=== PATIENT | female | born 1995 | race Caucasian/White ===

== ENCOUNTER 2024-04-12 01:08 | Inpatient (IN) | payer MEDICAID ==
[2024-04-12] MEDS ORDERED: Terbutaline 1 MG/ML SDV SUBCUT PRN (01:22)
[2024-04-12] MEDS ORDERED: Misoprostol 25 MCG (1/4 of 100 MCG) Tab VAG PRN (01:22)
[2024-04-12] MEDS ORDERED: Butorphanol 2 MG/ML SDV IVPUSH PRN (01:22)
[2024-04-12] MEDS ORDERED: Water For Irrigation,Sterile 1,000 ML Container IRR PRN (01:22)
[2024-04-12] MEDS ORDERED: Lidocaine 1% 50 ML MDV INJECT PRN (01:22)
[2024-04-12] MEDS ORDERED: Sodium Chloride 0.9% 10 ML Syringe FLUSH PRN (01:22)
[2024-04-12] MEDS ORDERED: Methylergonovine 0.2 MG/1 ML Amp IM PRN (01:22)
[2024-04-12] MEDS ORDERED: Tranexamic Acid IN NACL,ISO-OS 1,000 MG in Premix Bag 1 BAG IV PRN (01:22)
[2024-04-12] MEDS ORDERED: Misoprostol 200 MCG Tab PO PRN (01:22)
[2024-04-12] MEDS ORDERED: Sodium Chloride 0.9% 2.5 ML Syringe FLUSH PRN (01:22)
[2024-04-12] MEDS ORDERED: Carboprost Tromethamine 250 MCG/1 mL Vial IM PRN (01:22)
[2024-04-12] MEDS ORDERED: Sodium Chloride 0.9% 20 ML SDV IV PRN (01:22)
[2024-04-12] MEDS ORDERED: Oxytocin/0.9 % Sodium Chloride 30 UNIT/500 ML BAG IV SCH (01:30)
[2024-04-12 02:16] LABS: HEMATOCRIT 33.6 % (37.0-47.0); HEMOGLOBIN 11.3 g/dL (12.0-16.0); MEAN CORPUSCULAR HEMOGLOBIN 27.2 pg (28.0-32.0); MEAN CORPUSCULAR HGB CONC 33.6 g/dL (32.0-36.0); MEAN CORPUSCULAR VOLUME 80.8 fL (83.0-99.0); MEAN PLATELET VOLUME 11.2 fL (9.4-12.3); PLATELET COUNT,PLT 236 K/uL (150-400); RED BLOOD CELL COUNT 4.16 M/uL (4.10-5.30); WHITE BLOOD CELL COUNT,WBC 9.92 K/uL (3.9-11.3)
[2024-04-12] MEDS: Misoprostol 25 MCG (1/4 of 100 MCG) Tab VAG PRN (03:02)
[2024-04-12] MEDS ORDERED: Phenylephrine HCl In 0.9% NaCl 1 MG/10 ML Syringe IVPUSH PRN (06:52)
[2024-04-12] MEDS ORDERED: ePHEDrine 50 MG/ML SDV IVPUSH PRN ×2 (06:52)
[2024-04-12] MEDS ORDERED: Ropivacaine HCl/PF 400 MG in Premix Bag 1 BAG EPIDUR SCH (07:00)
[2024-04-12] MEDS ORDERED: dexmedeTOMIDine HCl 200 MCG/2 ML SDV EPIDUR SCH (07:00)
[2024-04-12] MEDS: Lactated Ringers 1,000 ML IV SCH (10:00)
[2024-04-12] MEDS: Oxytocin/0.9 % Sodium Chloride 30 UNIT/500 ML BAG IV SCH (10:25)
[2024-04-12] MEDS: Misoprostol 25 MCG (1/4 of 100 MCG) Tab VAG SCH (19:08)
[2024-04-13] MEDS ORDERED: Phenylephrine HCl In 0.9% NaCl 1 MG/10 ML Syringe IVPUSH PRN (08:18)
[2024-04-13] MEDS ORDERED: ePHEDrine 50 MG/ML SDV IVPUSH PRN ×2 (08:18)
[2024-04-13] MEDS ORDERED: dexmedeTOMIDine HCl 200 MCG/2 ML SDV EPIDUR SCH (08:30)
[2024-04-13] MEDS: Ondansetron 4 MG/2 ML SDV IVPUSH PRN (10:04)
[2024-04-13] MEDS: Ropivacaine HCl/PF 400 MG in Premix Bag 1 BAG EPIDUR SCH (10:20)
[2024-04-13] MEDS ORDERED: Bupivacaine 0.25% 10 ML SDV ONE (10:40)
[2024-04-13] MEDS ORDERED: Lanolin 100% Cream 7 GM Tube TOP PRN (18:59)
[2024-04-13] MEDS ORDERED: Tranexamic Acid IN NACL,ISO-OS 1,000 MG in Premix Bag 1 BAG IV PRN (18:59)
[2024-04-13] MEDS ORDERED: Methylergonovine 0.2 MG/1 ML Amp IM PRN (18:59)
[2024-04-13 20:07] LABS: PH,UMBILICAL ARTERIAL 7.092 (7.18-7.38); PH,UMBILICAL VENOUS 7.277 (7.25-7.45)
[2024-04-13] MEDS: Benzocaine/Menthol 20%-0.5% Spray 78 GM Cannister TOP PRN (22:14)
[2024-04-13] MEDS: Witch Hazel Medicated Pads 40/Jar TOP PRN (22:14)
[2024-04-14] MEDS: Ibuprofen 800 MG Tab PO PRN (00:10)
[2024-04-14] MEDS: Acetaminophen 500 MG Tab PO PRN (00:11)
[2024-04-14 06:46] LABS: HEMATOCRIT 33.1 % (37.0-47.0); HEMOGLOBIN 10.7 g/dL (12.0-16.0)
[2024-04-14] MEDS: Docusate Sodium 100 MG Cap PO PRN (13:06)
== END 2024-04-15 14:45 | disposition home or self-care (01) | DRG 806 ==
LOC: MW.OB 01:08 → OBSVTOIN 04-13 18:59 → MW.OB 04-13 23:04
PROVIDERS: ADMIT Obstetrics & Gynecology; ATTEND Obstetrics & Gynecology
PROC: 10D07Z6 Extraction of Products of Conception, Vacuum, Via Natural or Artificial Opening (ICD-10-PCS; principal; 2024-04-13)
PROC: 3E0P7VZ Introduction of Hormone into Female Reproductive, Via Natural or Artificial Opening (ICD-10-PCS; 2024-04-13)
PROC: 3E033VJ Introduction of Other Hormone into Peripheral Vein, Percutaneous Approach (ICD-10-PCS; 2024-04-13)
PROC: 3E0R3BZ Introduction of Anesthetic Agent into Spinal Canal, Percutaneous Approach (ICD-10-PCS; 2024-04-13)
PROC: 00HU33Z Insertion of Infusion Device into Spinal Canal, Percutaneous Approach (ICD-10-PCS; 2024-04-13)
PROC: 0UQG7ZZ Repair Vagina, Via Natural or Artificial Opening (ICD-10-PCS; 2024-04-13)
PROC: 10907ZC Drainage of Amniotic Fluid, Therapeutic from Products of Conception, Via Natural or Artificial Opening (ICD-10-PCS; 2024-04-13)
PROC: 10H07YZ Insertion of Other Device into Products of Conception, Via Natural or Artificial Opening (ICD-10-PCS; 2024-04-13)
DX: O48.0 Post-term pregnancy (principal); O71.4 Obstetric high vaginal laceration alone; Z37.0 Single live birth; O35.10X0 Maternal care for (suspected) chromosomal abnormality in fetus, unspecified, not applicable or unspecified; O66.5 Attempted application of vacuum extractor and forceps; O76 Abnormality in fetal heart rate and rhythm complicating labor and delivery; Z3A.40 40 weeks gestation of pregnancy
CPT/HCPCS: 36415; 51702; 59025; 59409; 82803; 85014; 85018; 85027; 86592; 86850; 86900; 86901; A9270-GY; J2405; J2590; J2795; J3490; J7120

== ENCOUNTER 2024-11-18 11:47 | Emergency (ER) | payer BC, MEDICAID ==
[2024-11-18 12:20] LABS: BASOPHILS ABSOLUTE AUTO 0.03 K/uL (0.00-0.20); BASOPHILS PERCENT AUTO 0.4 % (0.0-1.0); EOSINOPHILS ABSOLUTE AUTO 0.07 K/uL (0.00-0.45); HEMATOCRIT 35.7 % (37.0-47.0); HEMOGLOBIN 12.2 g/dL (12.0-16.0); IMMATURE GRAN ABSOLUTE AUTO 0.02 K/uL (0.00-0.05); IMMATURE GRAN PERCENT AUTO 0.3 % (0.0-0.4); LYMPHOCYTES ABSOLUTE AUTO 2.36 K/uL (1.00-4.80); LYMPHOCYTES PERCENT AUTO 33.2 % (24.0-44.0); MEAN CORPUSCULAR HEMOGLOBIN 28.2 pg (28.0-32.0); MEAN CORPUSCULAR HGB CONC 34.2 g/dL (32.0-36.0); MEAN CORPUSCULAR VOLUME 82.6 fL (83.0-99.0); MEAN PLATELET VOLUME 9.8 fL (9.4-12.3); MONOCYTES ABSOLUTE AUTO 0.34 K/uL (0.00-0.80); MONOCYTES PERCENT AUTO 4.8 % (0.0-8.0); NEUTROPHILS ABSOLUTE AUTO 4.29 K/uL (1.80-7.70); NEUTROPHILS PERCENT AUTO 60.3 % (41.0-71.0); PLATELET COUNT,PLT 256 K/uL (150-400); RED BLOOD CELL COUNT 4.32 M/uL (4.10-5.30); WHITE BLOOD CELL COUNT,WBC 7.11 K/uL (3.9-11.3)
[2024-11-18 12:35] LABS: CALCIUM 8.7 mg/dL (8.5-10.1); CARBON DIOXIDE,CO2 20.6 mmol/L (21.0-32.0); CREATININE 0.7 mg/dL (0.6-1.0); EST CRCL DRUG DOSING (CG) 106.7 mL/min
== END 2024-11-18 15:10 | disposition home or self-care (01) ==
LOC: MW.ED 11:47
DX: O44.11 Complete placenta previa with hemorrhage, first trimester (principal); Z3A.14 14 weeks gestation of pregnancy
CPT/HCPCS: 36415; 76815; 76815-26; 80048; 85025; 99284

== ENCOUNTER 2025-05-16 09:00 | Inpatient (IN) | payer BC, MEDICAID ==
[2025-05-16] MEDS ORDERED: Sodium Chloride 0.9% 2.5 ML Syringe FLUSH PRN (09:53)
[2025-05-16] MEDS ORDERED: Water For Irrigation,Sterile 1,000 ML Container IRR PRN (09:53)
[2025-05-16] MEDS ORDERED: Butorphanol 1 MG/ML SDV IVPUSH PRN (09:53)
[2025-05-16] MEDS ORDERED: Sodium Chloride 0.9% 10 ML Syringe FLUSH PRN (09:53)
[2025-05-16] MEDS ORDERED: Ondansetron 4 MG/2 ML SDV IVPUSH PRN (09:53)
[2025-05-16] MEDS ORDERED: Carboprost Tromethamine 250 MCG/1 mL Vial IM PRN (09:53)
[2025-05-16] MEDS ORDERED: Terbutaline 1 MG/ML SDV SUBCUT PRN (09:53)
[2025-05-16] MEDS ORDERED: Oxytocin/0.9 % Sodium Chloride 30 UNIT/500 ML BAG IV SCH (10:00)
[2025-05-16] MEDS: Lactated Ringers 1,000 ML IV SCH (10:31)
[2025-05-16 11:25] LABS: MEAN PLATELET VOLUME 12.0 fL (9.4-12.3); NRBC ABSOLUTE 0.00 K/uL (0.00-0.02); NRBC PERCENT 0.0 /100WBC (0.0-0.2); PLATELET COUNT,PLT 241 K/uL (150-400); RED BLOOD CELL COUNT 4.22 M/uL (4.10-5.30); WHITE BLOOD CELL COUNT,WBC 8.13 K/uL (3.9-11.3)
[2025-05-16] MEDS: Oxytocin/0.9 % Sodium Chloride 30 UNIT/500 ML BAG IV SCH (12:47)
[2025-05-16] MEDS ORDERED: dexmedeTOMIDine HCl 200 MCG/2 ML SDV ONE (18:19)
[2025-05-16] MEDS: Ropivacaine HCl/PF 200 ML ONE (18:35)
[2025-05-16] MEDS ORDERED: ePHEDrine 50 MG/ML SDV IVPUSH PRN (18:41)
[2025-05-16] MEDS ORDERED: Ropivacaine HCl/PF 400 MG in Premix Bag 1 BAG EPIDUR SCH (18:45)
[2025-05-16] MEDS ORDERED: dexmedeTOMIDine HCl 200 MCG/2 ML SDV EPIDUR SCH (18:45)
[2025-05-16] MEDS ORDERED: Aluminum Hydroxide/Magnesium Hydroxide/Simethicone Susp 30 ML Cup PO PRN (23:46)
[2025-05-17 00:26] LABS: PH,UMBILICAL ARTERIAL 7.3 (7.18-7.38); PH,UMBILICAL VENOUS 7.22 (7.25-7.45)
[2025-05-17] MEDS: Benzocaine/Menthol 20%-0.5% Spray 78 GM Cannister TOP PRN (05:22)
[2025-05-17] MEDS: Lanolin 100% Cream 7 GM Tube TOP PRN (05:22)
[2025-05-17] MEDS: Witch Hazel Medicated Pads 40/Jar TOP PRN (05:23)
[2025-05-17 05:48] LABS: BASOPHILS ABSOLUTE AUTO 0.04 K/uL (0.00-0.20); BASOPHILS PERCENT AUTO 0.3 % (0.0-1.0); EOSINOPHILS ABSOLUTE AUTO 0.01 K/uL (0.00-0.45); EOSINOPHILS PERCENT AUTO 0.1 % (0.0-6.0); IMMATURE GRAN ABSOLUTE AUTO 0.06 K/uL (0.00-0.05); IMMATURE GRAN PERCENT AUTO 0.5 % (0.0-0.4); LYMPHOCYTES ABSOLUTE AUTO 1.43 K/uL (1.00-4.80); LYMPHOCYTES PERCENT AUTO 12.3 % (24.0-44.0); MEAN PLATELET VOLUME 12.0 fL (9.4-12.3); MONOCYTES ABSOLUTE AUTO 0.55 K/uL (0.00-0.80); MONOCYTES PERCENT AUTO 4.7 % (0.0-8.0); NEUTROPHILS ABSOLUTE AUTO 9.50 K/uL (1.80-7.70); NEUTROPHILS PERCENT AUTO 82.1 % (41.0-71.0); NRBC ABSOLUTE 0.00 K/uL (0.00-0.02); NRBC PERCENT 0.0 /100WBC (0.0-0.2); PLATELET COUNT,PLT 231 K/uL (150-400); RED BLOOD CELL COUNT 4.10 M/uL (4.10-5.30); WHITE BLOOD CELL COUNT,WBC 11.59 K/uL (3.9-11.3)
[2025-05-17] MEDS: Measles, Mumps & Rubella Vaccine 0.5 ML SDV SUBCUT ONE (10:02)
[2025-05-17] MEDS: Sodium Ferric Gluconate Cmplex 125 MG in Sodium Chloride 0.9% 100 ML IV SCH (10:10)
== END 2025-05-18 11:15 | disposition home or self-care (01) | DRG 560 ==
LOC: MW.OBCHECK 09:00 → MW.OB 09:01 → MW.OBCHECK 10:08 → OBSVTOIN 23:46 → MW.OB 05-17 02:20
PROVIDERS: ADMIT Obstetrics & Gynecology; ATTEND Obstetrics & Gynecology
PROC: 10E0XZZ Delivery of Products of Conception, External Approach (ICD-10-PCS; principal; 2025-05-16)
PROC: 3E0234Z Introduction of Serum, Toxoid and Vaccine into Muscle, Percutaneous Approach (ICD-10-PCS; 2025-05-16)
PROC: 3E0R3BZ Introduction of Anesthetic Agent into Spinal Canal, Percutaneous Approach (ICD-10-PCS; 2025-05-16)
PROC: 10H07YZ Insertion of Other Device into Products of Conception, Via Natural or Artificial Opening (ICD-10-PCS; 2025-05-16)
PROC: 0HQ9XZZ Repair Perineum Skin, External Approach (ICD-10-PCS; 2025-05-16)
DX: O99.02 Anemia complicating childbirth (principal); O42.02 Full-term premature rupture of membranes, onset of labor within 24 hours of rupture; O43.193 Other malformation of placenta, third trimester; Z3A.39 39 weeks gestation of pregnancy; Z37.0 Single live birth; Z23 Encounter for immunization; Z98.890 Other specified postprocedural states; Z79.899 Other long term (current) drug therapy; O70.0 First degree perineal laceration during delivery
CPT/HCPCS: 01967; 36415; 51702; 59025; 59409; 76815; 76815-26; 82803; 84112; 85025; 85027; 86592; 86850; 86900; 86901; 90707; A9270-GY; J0665; J2590; J2795; J2916; J7120